=== PATIENT | female | born 1975 ===

== ENCOUNTER → 2017-10-28 | Outpatient (REF) | payer MEDICARE ==
[2017-10-28 14:13] LABS: CREATININE FOR GFR 0.84 MG/DL (0.55-1.30); GLOMERULAR FILTRATION RATE > 60.0 (>58); RHEUMATOID FACTOR QUANT < 10.0 IU/ML (0-15.0)
[2017-10-28 14:13] LABS: BLOOD UREA NITROGEN 15 MG/DL (7-18)
[2017-10-28 14:22] LABS: FOLATE 7.4 NG/ML; TOTAL 25(OH) VITAMIN D 11.4 NG/ML (30.0-100.0); VITAMIN B12 LEVEL 619 PG/ML
[2017-10-28 15:08] LABS: ERYTHROCYTE SEDIMENTATION RATE 14 mm/hr (0-20)
[2017-11-03 00:06] LABS: ANTI DOUBLE STRAND-DNA AB <1 IU/mL (0-9); ANTINUCLEAR ANTIBODIES DIRECT Negative (Negative); CERULOPLASMIN 31.6 mg/dL (19.0-39.0); COPPER PLASMA 130 ug/dL (72-166); SJOGREN'S ANTI SS-A 0.2 AI (0.0-0.9); SJOGREN'S ANTI SS-B <0.2 AI (0.0-0.9)
== END ==
LOC: M LABNEURO 13:42
DX: G35 Multiple sclerosis (principal); Z79.899 Other long term (current) drug therapy
CPT/HCPCS: 82525